=== PATIENT | male | born 1995 | race Two or more races ===

== ENCOUNTER 2018-05-29 17:36 | Emergency (ER) | payer SELFPAY ==
[~2018-05-29] VITALS: Ht 182.9 cm; Wt 81.6 kg
[2018-05-29] MEDS ORDERED: ACETAMINOPHEN 500 MG TAB PO ONE (19:15)
[2018-05-29 19:21] VITALS: BP 134/86
== END 2018-05-29 20:46 | disposition home or self-care (01) ==
LOC: EDBD 17:36 → ER 17:46
DX: R51 Headache (principal); I10 Essential (primary) hypertension; Z88.6 Allergy status to analgesic agent
CPT/HCPCS: 70450